=== PATIENT | female | born 1970 | race Two or more races ===

== ENCOUNTER 2016-07-27 21:13 | Emergency (ER) | payer SELFPAY ==
[2016-07-27] MEDS ORDERED: IBUPROFEN 600 MG TABLET ONE (22:11)
[2016-07-27] MEDS ORDERED: AMOX 875 MG/CLAV 125 MG 1 EACH TABLET ONE (22:11)
== END 2016-07-27 22:34 | disposition home or self-care (01) ==
LOC: ED 21:13
DX: H66.92 Otitis media, unspecified, left ear (principal)
CPT/HCPCS: 99283 ×2; A9270 ×2